=== PATIENT | female | born 1995 | race Caucasian/White ===

== ENCOUNTER 2016-07-07 16:44 | Emergency (ER) | payer BC ==
[2016-07-07 17:28] VITALS: BP 126/66; PULSE 73; TEMP 98.4; BMI 26.6
--- NOTE | 2016-07-07 18:16 | PDOC ---
History of Present Illness - General Chief Complaint: Abscess Boil Stated Complaint: ABSCESS BOIL Time Seen by Provider: 07/07/16 17:33 History Source: Patient Exam Limitations: No Limitations - History of Present Illness Initial Comments: 07/07/16 18:48 Pt. is a 20 y/o female with no PMH who presents to the ED c/o a "cyst" on her labia. Pt. states that she noticed the cyst approximately 4 days ago. She states that the cyst is irritating her and it itches. She would like it evaluated today. She denies fevers, chills, discharge, and dysuria. Past History - Travel Traveled outside of the country in the last 30 days: No Close contact w/someone who was outside of country & ill: No - Past Medical History Allergies/Adverse Reactions: Allergies Allergy/AdvReac Type Severity Reaction Status Date / Time peanut Allergy Verified 07/07/16 17:20 Home Medications: Ambulatory Orders No Home Medications 0 dose .ROUTE UTDICT 07/15/13 Other medical history: mason - Immunization History Immunization Up to Date: Yes - Psycho/Social/Smoking Cessation Hx Anxiety: No Suicidal Ideation: No Smoking History: Never smoked Have you smoked in the past 12 months: No Information on smoking cessation initiated: No Hx Alcohol Use: Yes (socially) Drug/Substance Use Hx: No Substance Use Type: None Review of Systems - Review of Systems Able to Perform ROS?: Yes Is the patient limited [place]ese proficient: No Constitutional: No: Chills, Fever, Malaise : No: Burning, Dysuria, Hematuria Integumentary: Yes: Pruritus (R labia), Other (Cyst on the R labia) *Physical Exam - Vital Signs Last Vital Signs Temp Pulse Resp BP Pulse Ox 98.4 F 73 20 126/66 100 07/07/16 17:20 07/07/16 17:20 07/07/16 17:20 07/07/16 17:20 07/07/16 17:20 - Physical Exam General Appearance: Yes: Nourished, Appropriately Dressed, Other (Sitting on exam bed, breathing easily). No: Apparent Distress Integumentary: positive: Other (Hard Cystic pustule on the R labia measuring about 0.5 cm. Non-draining with no erythma or inflammation of the surrounding area) Medical Decision Making - Medical Decision Making 07/07/16 19:06 Pt. is a 20 y/o female who presents to the ED complaining of a cyst on her R labia. Needle aspiration was attempted to see if there was any purulent fluid in the pustule. Area was wiped with an alcohol prep pad and a 25g needle was use. No material aspirated. Will d/c home at this time with diagnosis of pustule. Pt. advised to do sitz baths for relief and to pad the area over the pustule for comfort. Pt. advised to hold off on grooming the area. Pt. understands all discharge instructions and all questions were answered at this time. *DC/Admit/Observation/Transfer Diagnosis at time of Disposition: Pustular acne - Discharge Dispostion Disposition: HOME Condition at time of disposition: Stable Admit: No - Referrals Referrals: Guerline Posada MD [Primary Care Provider] - - Patient Instructions Additional Instructions: You have a pimple. It will go away on its own. Use warm water soaks (sit in a bath tub with warm water) for 20 minutes at a time at least once a day until it goes away. Do not shave the area until it goes away. Keep the area clean. You may use a 4x4 gauze over the area to prevent rubbing. Return to the ED if you develop fevers, chills, purulent drainage from the area , increased redness of the area, or any changes in your symptoms
== END 2016-07-07 18:21 | disposition home or self-care (01) ==
LOC: JERFT 16:44
PROC: 0U9MXZZ Drainage of Vulva, External Approach (ICD-10-PCS; principal; 2016-07-07)
DX: N76.4 Abscess of vulva (principal)
CPT/HCPCS: 99281-25